=== PATIENT | male | born 1935 | race Caucasian/White ===

== ENCOUNTER → 2016-09-12 | Outpatient (CLI) | payer MEDICARE ==
[~2016-09-12] MED LIST: AMBIEN10 MG PO; AMIODARONE PO; AMLODIPINE BESYL5 MG PO; ANORO ELLIPTA1 EACH INH; ASPIRIN81 M2 PO; AZULFIDINE500 M1 PO; BREO ELLIPTA 21 EACH; CARVEDILOL6.25 MG PO; COMBIGAN EYE DRO5 ML; CRESTOR10 MG; DIFLUCAN PO; FLOMAX0.4 M1 PO; INCRUSE ELLI62.5 MCG INH; KEFLEX500 M1 PO; LASIX20 MG PO; LAXATIVE5 M1 PO; LEVOXYL175 MCG PO; LEVOXYL200 MC1 PO; LINZESS290 MCG PO; PANTOPRAZOLE SO40 MG PO; PROAIR HFA8.5 GM INH; REQUIP0.25 MG PO
--- NOTE | ~2016-09-12 | CT55 ---
[facility] A Service of [facility] & [facility] RADIOLOGY TEXT RESULTS PATIENT: XUAN JO LOCATION: [facility] : 33 UNIT #: [id number] AGE: [address]: Ricco Penny MD SEX: M ORDER DR: [id number] [facility] [address] [place], [place] [address] [id number] O MR#: [id number] Acc #: [id number] NAME: XUAN JO : 1935 SEX: M STUDY DATE/TIME: 09/12/2016 UNIT: [facility] ROOM: STUDY DESCRIPTION: CT Chest W Con Attending Physician: Ricco Penny M.D. Referring Physician: Ricco Penny M.D. Ordering Physician: Ricco Penny M.D. Primary Care Physician: Abena Domínguez M.D. MEDICAL IMAGING REPORT This report is preliminary unless electronic signature is present EXAM CT chest with contrast 09/12/2016 HISTORY Thymic cancer. Observation for metastatic disease. Restaging. Patient states no current complaints. COMPARISON CT chest without contrast 05/08/2016. PET/CT 01/04/2016. PROCEDURE 5 mm axial images from the thoracic inlet through the upper abdomen after 40 mL Isovue 370 contrast administration. Sagittal and coronal reformatted images were obtained. This CT examination was performed with one or more of the following radiation dose reduction techniques: automatic exposure control, adjustment of mA and/or kV according to patient size, and iterative reconstruction. FINDINGS Circumscribed low density nodule is demonstrated within the anterior mediastinal fat, located anterior to the distal ascending thoracic aorta. This lesion is significantly smaller today. On today's exam, the anterior mediastinal mass measures 2.8 x 4.0 x 2.9 cm. On 05/08/2016, it measured 3.1 x 5.3 x 4.6 cm. Additionally, it has more central fluid density suggesting necrosis. No new mediastinal, hilar, axillary or supraclavicular nodes or soft tissue masses are identified. No pericardial effusion or pleural effusion. Coronary artery calcifications are present. Thyroid gland not visualized and may be atrophic. Fluid within the azygo-esophageal pericardial recess versus 2.4 cm node is unchanged from 07/27/2015 CT chest, not FDG avid on previous PET/CT, consistent with benign finding. There is an 8 mm noncalcified nodule in the anterior right lung apex. [facility] Service of [facility] RADIOLOGY TEXT RESULTS PATIENT: XUAN JO LOCATION: [facility] : 34 UNIT #: [id number] AGE: [address]: Ricco Penny MD SEX: M ORDER DR: appears stable since 05/08/2016 but is a new finding since the 07/27/2015 CT chest. 7 mm pleural-based nodule within the right upper lobe inferiorly and laterally just above the minor fissure (series 6 image 32) is unchanged from 05/08/2016 but appears larger than on 07/27/2015 where it measured only 5 mm. A 4 mm noncalcified nodule intimately associated with the major fissure of the right lung, probably in the right middle lobe (series 6 image 38) appears larger than on previous examination where it was only punctate, and appears new since 07/27/2015. There is a 3 mm noncalcified nodule within the left upper lobe (series 6 image 16) which appears stable since 05/08/2016 but appears new since 07/27/2015. There is new band-like subsegmental atelectasis in the left lower lobe and lingula. Minimal linear atelectasis in the posterior right lower lobe. No dense lung consolidations. No acute or suspicious osseous abnormalities. 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 Included portions of the upper abdominal organs are within normal limits. IMPRESSION 1. Mixed picture of disease change in comparison to 05/08/2016 and 07/27/2015. 2. The anterior mediastinal mass has significantly diminished in size consistent with response to therapy. 3. Noncalcified nodule in the right lung apex appears very slightly larger compared to 05/08/2016 but is new since 07/27/2015. Nodule within the periphery of the right upper lobe is slightly larger compared to 07/27/2015. Other nodules seen adjacent to the major fissure in the right lung and within the left lung apex are new or larger compared to the 2 prior studies. As such, findings are worrisome for slight interval progression of pulmonary nodule metastatic disease. Of note, these nodules are at or just below the size threshold for PET resolution, and are too small for percutaneous biopsy. Continued short-term CT chest surveillance imaging would be recommended. 4. New subsegmental atelectasis in the lingula and left lower lobe. Dictated by... Jackie Herrera M.D. THIS IS AN ELECTRONICALLY VERIFIED REPORT Jackie Herrera M.D. at 09/17/2016 1:22 PM [facility] A Service of [facility] & [facility] RADIOLOGY TEXT RESULTS PATIENT: XUAN JO LOCATION: [facility] : 34 UNIT #: [id number] AGE: [address]: Ricco Penny MD SEX: M ORDER DR: DEMARIO/joselyn TD: 09/13/2016 10:51 JOB #: [id number] MEDICAL IMAGING REPORT Page 1 of 1 COPY
[2016-09-12 13:37] LABS: CREATININE SERUM 1.5 mg/dL (0.6-1.4); GLOM FILT RATE Estimated 42.8 mL/min (>60)
== END | disposition home or self-care (01) ==
LOC: CCAT 12:39
PROVIDERS: Radiology Radiation Oncology
DX: C37 Malignant neoplasm of thymus (principal); J98.59 Other diseases of mediastinum, not elsewhere classified; R91.8 Other nonspecific abnormal finding of lung field; J98.11 Atelectasis
CPT/HCPCS: 36415; 71260; 82565; 84520; Q9967

== ENCOUNTER → 2016-11-01 | Day surgery (SDC) | payer MEDICARE ==
--- NOTE | ~2016-11-01 | OR ---
Unit #: [id number] #: [id number] Patient: XUAN JO [id number] [address] [address] [id number] O MR#: [id number] NAME: XUAN JO ROOM: Date of Procedure: 11/01/2016 Admission Date: 11/01/2016 Surgeon: Tony Anders M.D. : 1935 Attending Physician: Tony Anders M.D. Primary Care Physician: Abena Domínguez M.D. OPERATIVE REPORT JOB NOTE: VERIFY ADT. CC: PRIMARY CARE PHYSICIAN PROCEDURE PERFORMED Esophagogastroduodenoscopy with biopsy. INDICATIONS FOR PROCEDURE The patient with severe dysphagia, persistent nausea, vomiting, undergoing evaluation of upper endoscopy. MEDICATIONS Monitored anesthesia. POSTOPERATIVE FINDINGS 1. Severe esophagitis with Kristan diffusely from upper to distal esophagus. Biopsies taken. 2. Esophageal ring nonobstructing. 3. Hiatal hernia. 4. Mild gastritis. 5. Normal duodenum and distal duodenum. PLAN Diflucan for 7 days, PPI therapy. DESCRIPTION OF PROCEDURE The patient was explained of the procedure, risks, and benefits along with risks and benefits of anesthesia. He was brought to the endoscopy room. Propofol anesthesia was given. Bite block was placed. The scope was passed down the mouth and esophagus, stomach, duodenum, and distal duodenum. Findings as described. Biopsies taken. Gently I pulled the scope out the patient's mouth. He tolerated it well. Dictated by... Chely Miranda/mirta TD: 11/01/2016 11:02 JOB #: [id number] Unit #: [id number] #: [id number] Patient: XUAN JO OPERATIVE REPORT Page 1 of 1 X Tony Anders MD X PROCEDURE OPERATIVE NOTE
== END | disposition home or self-care (01) ==
LOC: COPS 06:32
DX: B37.81 Candidal esophagitis (principal); K22.2 Esophageal obstruction; K29.70 Gastritis, unspecified, without bleeding; K44.9 Diaphragmatic hernia without obstruction or gangrene; E03.9 Hypothyroidism, unspecified; K21.9 Gastro-esophageal reflux disease without esophagitis; G47.30 Sleep apnea, unspecified; Z88.0 Allergy status to penicillin; Z88.1 Allergy status to other antibiotic agents; Z88.2 Allergy status to sulfonamides; Z79.82 Long term (current) use of aspirin; Z79.51 Long term (current) use of inhaled steroids; Z79.899 Other long term (current) drug therapy; Z98.890 Other specified postprocedural states
CPT/HCPCS: 88305; J1450